=== PATIENT | male | born 1985 | race Caucasian/White ===

== ENCOUNTER 2024-10-26 01:05 | Emergency (ER) | payer SELFPAY ==
[~2024-10-26] VITALS: Ht 172.7 cm; Wt 86.0 kg
[2024-10-26 01:26] VITALS: O2SAT 99
[2024-10-26 01:29] VITALS: BP 127/86; PULSE 77; RESP 16; TEMP 36.8; O2SAT 99
[2024-10-26] MEDS ORDERED: BACITRACIN ZINC OINT UDPKT TOP ONE (02:00)
[2024-10-26] MEDS ORDERED: LIDOCAINE HCL/PF 1% 10 MG/ML 5ML VIAL INFIL ONE (02:00)
[2024-10-26] MEDS: TETANUS, DIPHTHERIA, PERTUSSIS VAC/PF 0.5ML (>10YR OLD) IM ONE (02:34)
[2024-10-26] MEDS ORDERED: BACITRACIN ZINC OINT UDPKT TOP NR (03:15)
[2024-10-26] MEDS: LIDOCAINE HCL/PF 1% 10 MG/ML 5ML VIAL INFIL NR (03:15)
== END 2024-10-26 04:41 | disposition home or self-care (01) ==
LOC: ER 01:05
DX: S61.412A Laceration without foreign body of left hand, initial encounter (principal); W23.0XXA Caught, crushed, jammed, or pinched between moving objects, initial encounter; X58.XXXA Exposure to other specified factors, initial encounter; Y93.89 Activity, other specified; Y92.89 Other specified places as the place of occurrence of the external cause; Y99.8 Other external cause status
CPT/HCPCS: 99283; 73130; 12001; J2003; 90715